=== PATIENT | female | born 1995 | race Caucasian/White ===

== ENCOUNTER → 2017-12-28 | Outpatient (CLI) | payer OTHER ==
--- NOTE | 2017-12-28 14:30 | CPEEG ---
[f rep st] ELECTROENCEPHALOGRAM DATE OF STUDY: 12/28/2017 INTERPRETATION: Normal EEG during wakefulness and sleep. There were no potentially epileptogenic abnormalities present during the recording. The technologist noticed some leg twitching during photic stimulation along with the patient feeling nauseous, dizzy and having tics. None of these symptoms had an EEG correlate and will be consistent with nonepileptic symptomatology. REPORT: This EEG contains 10 Hz alpha activity over the posterior head regions. There was no abnormal activation at rest, during photic stimulation, or hyperventilation. The patient became drowsy and fell asleep during the study. There was no abnormal activation during drowsiness, sleep, or during times of arousal. During drowsiness, the patient had some temporal theta transients. This can be a normal drowsy pattern. The technologist noticed some leg twitching during photic stimulation along with the patient feeling nauseous, dizzy and having tics. None of these symptoms had an EEG correlate and will be consistent with nonepileptic symptomatology. /[id number]/MODL MTDD
== END ==
LOC: FCPNEURO 11:50
PROVIDERS: ATTEND Psychiatry & Neurology Neurology
DX: G40.909 Epilepsy, unspecified, not intractable, without status epilepticus (principal)